=== PATIENT | male | born 1945 | race Caucasian/White ===

== ENCOUNTER → 2019-06-19 | Outpatient (CLI) | payer MEDICARE, MEDICAID ==
--- NOTE | 2019-06-19 10:04 | REP ---
CT BRAIN WITHOUT CONTRAST: HISTORY: Extra foraminal and movement disorder symptoms. Drug-induced subacute dyskinesia. Drug-induced tremor. No comparison brain imaging. CT FINDINGS: Digital preliminary talent scout radiograph is unremarkable. The maxilla is edentulous. The bony calvarium is intact. There is mild vascular calcification in the distal internal carotid arteries. There is partial opacification of the anterior ethmoid air cells bilaterally. The right frontal sinus is opacified. The visualized paranasal sinuses are otherwise clear. The right ocular globe appears to be a prosthetic or to contain multiple calcifications. On soft tissue window settings, there is generalized volume loss, mild in degree. Cole/white differentiation pattern is normal above below the tentorium. There is no evidence of intracranial hemorrhage or mass lesion. There is no evidence of infarct, extra-axial fluid collection, or midline shift. IMPRESSION: Mild generalized volume loss. Vascular calcification. No acute intracranial abnormality. Electronically Signed by Ramin Conklin MD 06/19/2019 11:25 A
== END ==
LOC: M RAD 08:51
PROVIDERS: ATTEND Psychiatry & Neurology Neurology
DX: G25.9 Extrapyramidal and movement disorder, unspecified (principal); G24.01 Drug induced subacute dyskinesia; G25.1 Drug-induced tremor

== ENCOUNTER → 2020-03-31 | Outpatient (REF) | LOC: M LAB LCGH 12:11 | PROVIDERS: ATTEND Internal Medicine | DX: Z79.899 Other long term (current) drug therapy (principal) ==